=== PATIENT | male | born 1995 | race American Indian/Alaskan Native ===

== ENCOUNTER 2019-08-21 16:24 | Emergency (ER) | payer SELFPAY ==
[2019-08-21 16:52] VITALS: BP 144/66
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
== END 2019-08-21 17:22 | disposition home or self-care (01) ==
LOC: ED 16:24
DX: S80.211A Abrasion, right knee, initial encounter (principal); F17.200 Nicotine dependence, unspecified, uncomplicated; Z88.0 Allergy status to penicillin; Y08.89XA Assault by other specified means, initial encounter; Y93.89 Activity, other specified; Y92.89 Other specified places as the place of occurrence of the external cause; Y99.8 Other external cause status
CPT/HCPCS: 99282

== ENCOUNTER 2019-12-30 14:35 | Emergency (ER) | payer SELFPAY ==
[2019-12-30 15:01] VITALS: BP 117/65
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
== END 2019-12-30 17:30 | disposition left against medical advice (07) ==
LOC: ED 14:35
DX: M54.2 Cervicalgia (principal); Z53.21 Procedure and treatment not carried out due to patient leaving prior to being seen by health care provider